=== PATIENT | female | born 1955 | race Caucasian/White ===

== ENCOUNTER 2022-09-04 12:59 | Emergency (ER) | payer SELFPAY ==
[~2022-09-04] VITALS: Ht 157.5 cm; Wt 59.7 kg
[2022-09-04 13:01] VITALS: BP 112/70
[2022-09-04] MEDS ORDERED: CITA20TA7 PO (13:15)
[2022-09-04] MEDS ORDERED: ATOR1TAB19 PO (13:15)
[2022-09-04] MEDS ORDERED: BUSP5TA PO (13:15)
[2022-09-04] MEDS ORDERED: MELO15TA28 PO (13:15)
[2022-09-04] MEDS ORDERED: GABA-283 PO (13:15)
== END 2022-09-04 15:55 | disposition left against medical advice (07) ==
LOC: M ED 12:59
DX: Z53.21 Procedure and treatment not carried out due to patient leaving prior to being seen by health care provider (principal)